=== PATIENT | male | born 1995 | race Two or more races ===

== ENCOUNTER 2024-01-19 14:05 | Emergency (ER) | payer OTHER ==
[~2024-01-19] VITALS: Ht 188 cm; Wt 70.8 kg
[2024-01-19] MEDS ORDERED: FAMOTIDINE/PF 20 MG/2 ML VIAL IV PUSH STA (15:44)
[2024-01-19] MEDS ORDERED: 0.9 % SODIUM CHLORIDE 1,000 ML IV STA (15:45)
[2024-01-19] MEDS ORDERED: ONDANSETRON HCL 2 MG/ML VIAL IV STA (15:47)
[2024-01-19] MEDS ORDERED: ONDANSETRON HCL 2 MG/ML VIAL ONE (15:56)
[2024-01-19] MEDS ORDERED: FAMOTIDINE/PF 20 MG/2 ML VIAL ONE (15:57)
[2024-01-19 16:26] LABS: HEMATOCRIT 48.4 % (39.0-48.0); HEMOGLOBIN 16.5 g/dL (13-16.00); MEAN CELL VOLUME 90.1 fL (80.0-100.00); MEAN CORPUSCULAR HEMOGLOBIN 30.7 pg (27.00-32.0); MEAN CORPUSCULAR HGB CONC 34.1 g/dl (32.0-36.0); RED BLOOD COUNT 5.37 M/uL (4.00-6.00); RED CELL DISTRIBUTION WIDTH 13.3 % (11.5-14.5)
[2024-01-19 16:34] LABS: PH,URINE 7.5 (5.0-8.0); URINE APPEARANCE Cloudy; URINE BILIRRUBIN Negative (NEGATIVE); URINE BLOOD Negative; URINE COLOR Dark Yellow; URINE GLUCOSE Negative (NEGATIVE); URINE LEUKOCYTE Trace; URINE NITRATE Negative
[2024-01-19 16:36] LABS: ALBUMIN 4.1 gm/dL (3.4-5.0); BILIRUBIN TOTAL 0.71 mg/dL (0.3-1.2); BILIRUBIN,CONJUGATED 0.27 mg/dL (0.0-0.2); BILIRUBIN,UNCONJUGATED 0.44 mg/dL (0.0-0.6); CALCIUM 9.1 mg/dL (8.5-10.1); CREATININE SERUM 0.97 mg/dL (0.70-1.30); GFR 90.87; GLOBULINA 4.1 G/DL (2.4-3.5); POTASSIUM 4.93 mEq/L (3.5-5.1); TOTAL PROTEIN 8.2 gm/dL (6.4-8.2)
[2024-01-19 16:37] LABS: URINE BACTERIA 12.5 uL (0.0-1933); URINE EPITHELIAL CELLS 5.1 uL (0.0-38.8); URINE RBC 26.4 uL (0.0-20.8); URINE WBC 9.2 uL (0.0-23.2)
[2024-01-19 16:39] LABS: URINE CAST 0.45 uL (0.0-1.40); URINE KETONE 80 (NEGATIVE); URINE PROTEIN 100 (NEGATIVE)
[2024-01-19 17:13] LABS: PLATELET COUNT 103 K/uL (150-450)
[2024-01-19] MEDS ORDERED: ONDANSETRON ODT8 MG PO (18:49)
== END 2024-01-19 19:08 | disposition home or self-care (01) ==
LOC: ER 14:07
PROVIDERS: Emergency Medicine
DX: B34.9 Viral infection, unspecified (principal); R11.10 Vomiting, unspecified